=== PATIENT | male | born 1970 ===

== ENCOUNTER 2019-04-13 22:18 | Inpatient (IN) ==
[2019-04-13] MEDS ORDERED: ONDANSETRON 4 MG/2 ML VIAL IV STA (22:37)
[2019-04-13] MEDS ORDERED: NITROGLYCERIN 2% OINT 1 INCH/GM PACK TOP STA (22:37)
[2019-04-13] MEDS ORDERED: PANTOPRAZOLE 40 MG VIAL IV STA (22:37)
[2019-04-13] MEDS ORDERED: ASPIRIN 325 MG TABLET PO STA (22:37)
[2019-04-13 22:46] LABS: Basophils % 0.6 % (0.0-0.8); Eosinophils # 0.2 10*3/uL (0.0-0.87); Eosinophils % 3.1 % (0.00-10.9); Hematocrit 38.4 VOL% (42.0-52.0); Hemoglobin 12.8 GM/DL (14.0-18.0); Immature Granulocytes % 0.4 %; Immature Granulocytes Absolute 0.03 #; Lymphocytes # 1.6 10*3/uL (1.4-4.0); Lymphocytes % 22.8 % (21.2-54.2); Mean Corpuscular HGB Conc 33.3 GM/DL (32-36); Mean Corpuscular Volume 89.9 FL (87-102); Mean Platelet Volume 9.6 FL (9.6-12.0); Monocytes % 9.2 % (1.7-12.7); Neutrophils % 63.9 % (38.7-73.9); Platelet Count 232 T/CUMM (130-400); Red Blood Count 4.27 MC/CUMM (3.8-5.5); Red Cell Distribution Width 13.9 % (9.3-17.3); White Blood Count 6.8 T/CUMM (4-12)
[2019-04-13 22:54] LABS: PT Patient Result 10.4 SECS; Partial Thromboplastin Time 24.5 SECS (0-40)
[2019-04-13 22:58] LABS: Alanine Aminotransferase 34 U/L (16-61); Albumin 3.2 G/DL (3.4-5.0); Alkaline Phosphatase 70 U/L (45-117); Aspartate Amino Transferase 27 U/L (0-37); Blood Urea Nitrogen 12 MG/DL (7-18); Calcium 8.6 MG/DL (8.5-10.1); Glucose 126 MG/DL (74-106); Osmolality,Calculated 280.4 MOS/KG (273-304); Total Protein 7.9 G/DL (6.4-8.3)
[2019-04-13 23:00] LABS: Troponin I 0.135 NG/ML (0.00-0.045)
[2019-04-13] MEDS ORDERED: ENOXAPARIN 120 MG/0.8 ML SYRINGE SUBCUT STA (23:39)
[2019-04-14] MEDS ORDERED: FAMOTIDINE 20 MG/2 ML VIAL IV STA (00:29)
[2019-04-14 01:20] LABS: Apearance,Urine CLEAR (Clear); Bilirubin,Urine Negative (Negative); Blood, Urine Small mg/dL (Negative); Glucose,Urine (UA) Negative (Negative); Ketones,Urine Negative (Negative); Mucus,Urine Occasional /LPF (Occasional); Nitrite,Urine Negative (Negative); Protein,Urine 30 MG/DL; RBC,Urine <1 /HPF (0-4); Squamous Epithelial Cell,Urine Occasional /HPF (0-10); Urine Color Yellow (Yellow); Urine Specific Gravity 1.012 (1.001-1.035); Urine Urobilinogen < 2.0 EU/DL (0.2-1.0); WBC,Urine 2 /HPF (0-6)
[2019-04-14 01:40] LABS: Barbiturates Screen,Urine Negative (Negative); Benzodiazepines Screen,Urine Negative (Negative); Cannabinoid Screen,Urine Negative (Negative); Opiate Screen,Urine Positive (Negative); Phencyclidine Screen,Urine Negative (Negative)
[2019-04-14] MEDS ORDERED: ONDANSETRON 4 MG/2 ML VIAL IV PRN (01:55)
[2019-04-14] MEDS ORDERED: MORPHINE 4 MG/1 ML VIAL IV PRN (01:55)
[2019-04-14] MEDS ORDERED: NITROGLYCERIN SL 0.4 MG TABLET SL PRN (01:55)
[2019-04-14] MEDS ORDERED: ACETAMINOPHEN 325 MG TABLET PO PRN (01:55)
[2019-04-14] MEDS ORDERED: DEXTROSE 50% 25 GM/50 ML VIAL IV PRN (03:42)
[2019-04-14] MEDS ORDERED: GLUCAGON 1 MG VIAL IM PRN (03:42)
[2019-04-14] MEDS: INSULIN LISPRO 100 UNIT/ML SUBCUT SCH ×5 (05:11→21:46)
[2019-04-14] MEDS ORDERED: CLOPIDOGREL 300 MG TABLET PO ONE (06:49)
[2019-04-14 07:45] LABS: Basophils % 0.6 % (0.0-0.8); Eosinophils # 0.2 10*3/uL (0.0-0.87); Eosinophils % 3.2 % (0.00-10.9); Hematocrit 36.9 VOL% (42.0-52.0); Hemoglobin 12.3 GM/DL (14.0-18.0); Immature Granulocytes % 0.2 %; Immature Granulocytes Absolute 0.01 #; Lymphocytes # 2.3 10*3/uL (1.4-4.0); Lymphocytes % 35.1 % (21.2-54.2); Mean Corpuscular HGB Conc 33.3 GM/DL (32-36); Mean Platelet Volume 9.9 FL (9.6-12.0); Monocytes % 9.3 % (1.7-12.7); Neutrophils % 51.6 % (38.7-73.9); Platelet Count 241 T/CUMM (130-400); White Blood Count 6.6 T/CUMM (4-12)
[2019-04-14 08:09] LABS: Calcium 8.2 MG/DL (8.5-10.1); Osmolality,Calculated 281.1 MOS/KG (273-304); Risk Ratio 5.56; Thyroid Stimulating Hormone 2.47 uIU/ml (0.358-3.74); VLDL CHOLESTEROL 36.4 MG/DL
[2019-04-14] MEDS: CLOPIDOGREL 75 MG TABLET PO SCH (08:44)
[2019-04-14] MEDS: DOCUSATE SODIUM 100 MG CAPSULE PO PRN (08:44)
[2019-04-14] MEDS: ASPIRIN 325 MG TABLET PO SCH (08:44)
[2019-04-14] MEDS: PANTOPRAZOLE 40 MG TABLET PO SCH (08:45)
[2019-04-14] MEDS: CARVEDILOL 3.125 MG TABLET PO SCH ×2 (08:45→21:46)
[2019-04-14] MEDS ORDERED: MAGNESIUM SULF RIDER 2 GM in PREMIX 1 EACH IV ONE (09:50)
[2019-04-14] MEDS: ENOXAPARIN 120 MG/0.8 ML SYRINGE SUBCUT SCH ×2 (11:01→22:16)
[2019-04-14] MEDS ORDERED: SERTRALINE 25 MG TABLET PO ONE (14:39)
[2019-04-14] MEDS: SERTRALINE 25 MG TABLET PO SCH (21:46)
[2019-04-14] MEDS: ROSUVASTATIN 10 MG TABLET PO SCH (21:46)
[2019-04-15 08:36] LABS: CKMB % 4.2 %
[2019-04-15 08:40] LABS: Troponin I 2.61 NG/ML (0.00-0.045)
[2019-04-15] MEDS: CLOPIDOGREL 75 MG TABLET PO SCH (09:28)
[2019-04-15] MEDS: INSULIN LISPRO 100 UNIT/ML SUBCUT SCH ×4 (09:28→21:49)
[2019-04-15] MEDS: PANTOPRAZOLE 40 MG TABLET PO SCH (09:28)
[2019-04-15] MEDS: CARVEDILOL 3.125 MG TABLET PO SCH ×2 (09:29→21:49)
[2019-04-15] MEDS: ASPIRIN 325 MG TABLET PO SCH (09:29)
[2019-04-15] MEDS: ENOXAPARIN 120 MG/0.8 ML SYRINGE SUBCUT SCH ×2 (12:58→23:51)
[2019-04-15] MEDS ORDERED: MAGNESIUM SULF RIDER 2 GM in PREMIX 1 EACH IV ONE (15:48)
[2019-04-15] MEDS ORDERED: DIAZEPAM 5 MG TABLET PO ONE (15:49)
[2019-04-15] MEDS ORDERED: diphenhydrAMINE CAP 25 MG CAPSULE PO ONE (15:49)
[2019-04-15] MEDS ORDERED: POTASSIUM CHLORIDE RIDER 10 MEQ in PREMIX 1 EACH IV PRN (15:49)
[2019-04-15] MEDS ORDERED: MAGNESIUM SULF RIDER 2 GM in PREMIX 1 EACH IV PRN (15:49)
[2019-04-15] MEDS: ROSUVASTATIN 10 MG TABLET PO SCH (21:48)
[2019-04-15] MEDS: SERTRALINE 25 MG TABLET PO SCH (21:49)
[2019-04-15] MEDS: MAGNESIUM CHLORIDE 64 MG TABLET PO SCH (21:49)
[2019-04-16 04:43] LABS: Calcium 8.4 MG/DL (8.5-10.1); Osmolality,Calculated 281.4 MOS/KG (273-304); Total Protein 7.9 G/DL (6.4-8.3)
[2019-04-16] MEDS ORDERED: DIAZEPAM 5 MG TABLET PO ONE (06:30)
[2019-04-16] MEDS ORDERED: diphenhydrAMINE CAP 25 MG CAPSULE PO ONE (06:30)
[2019-04-16] MEDS: CLOPIDOGREL 75 MG TABLET PO SCH (09:57)
[2019-04-16] MEDS: MAGNESIUM CHLORIDE 64 MG TABLET PO SCH ×2 (09:57→21:48)
[2019-04-16] MEDS: PANTOPRAZOLE 40 MG TABLET PO SCH (09:58)
[2019-04-16] MEDS: CARVEDILOL 3.125 MG TABLET PO SCH ×2 (09:58→21:48)
[2019-04-16] MEDS: ASPIRIN 325 MG TABLET PO SCH (09:58)
[2019-04-16] MEDS: INSULIN LISPRO 100 UNIT/ML SUBCUT SCH ×4 (10:00→21:49)
[2019-04-16] MEDS ORDERED: LIDOCAINE 1% 20 ML VIAL ONE (10:03)
[2019-04-16] MEDS ORDERED: MIDAZOLAM 2 MG/2 ML VIAL ONE (10:34)
[2019-04-16] MEDS ORDERED: fentaNYL 100 MCG/2 ML VIAL ONE ×2 (10:34→12:30)
[2019-04-16] MEDS ORDERED: HEPARIN 5,000 UNIT/1 ML VIAL ONE (10:56)
[2019-04-16] MEDS ORDERED: TIROFIBAN 5,000 MCG/100 ML PREMIX IV ONE (11:08)
[2019-04-16] MEDS ORDERED: TIROFIBAN IV ONE (11:11)
[2019-04-16] MEDS ORDERED: TICAGRELOR 90 MG TABLET ONE (12:29)
[2019-04-16] MEDS: ENOXAPARIN 120 MG/0.8 ML SYRINGE SUBCUT SCH (14:28)
[2019-04-16] MEDS: SODIUM CHLORIDE 0.9% 1,000 ML IV SCH ×4 (14:34→22:05)
[2019-04-16] MEDS: CILOSTAZOL 50 MG TABLET PO SCH ×2 (15:24→21:48)
[2019-04-16] MEDS: SERTRALINE 25 MG TABLET PO SCH (21:48)
[2019-04-16] MEDS: ROSUVASTATIN 10 MG TABLET PO SCH (21:48)
[2019-04-16] MEDS: TICAGRELOR 90 MG TABLET PO SCH (21:48)
[2019-04-17] MEDS: SODIUM CHLORIDE 0.9% 1,000 ML IV SCH (00:17)
[2019-04-17 04:24] LABS: Basophils % 0.4 % (0.0-0.8); Eosinophils % 0.3 % (0.00-10.9); Hematocrit 38.1 VOL% (42.0-52.0); Hemoglobin 12.8 GM/DL (14.0-18.0); Immature Granulocytes % 0.3 %; Immature Granulocytes Absolute 0.03 #; Lymphocytes # 1.1 10*3/uL (1.4-4.0); Mean Corpuscular HGB Conc 33.6 GM/DL (32-36); Mean Corpuscular Volume 89.9 FL (87-102); Mean Platelet Volume 9.6 FL (9.6-12.0); Monocytes % 8.3 % (1.7-12.7); Neutrophils % 78.7 % (38.7-73.9); Platelet Count 228 T/CUMM (130-400); Red Blood Count 4.24 MC/CUMM (3.8-5.5); Red Cell Distribution Width 13.9 % (9.3-17.3); White Blood Count 9.4 T/CUMM (4-12)
[2019-04-17 04:47] LABS: Albumin 3.1 G/DL (3.4-5.0); Bilirubin,Total 1.5 MG/DL (0.2-1.0); Calcium 8.2 MG/DL (8.5-10.1); Osmolality,Calculated 285.3 MOS/KG (273-304); Total Protein 7.9 G/DL (6.4-8.3)
[2019-04-17 09:12] LABS: Albumin 3.1 G/DL (3.4-5.0); Bilirubin,Direct 0.13 MG/DL (0.0-0.20); Bilirubin,Indirect 0.4 MG/DL (0.0-1.0); Bilirubin,Total 0.5 MG/DL (0.2-1.0); Total Protein 7.7 G/DL (6.4-8.3)
[2019-04-17] MEDS: INSULIN LISPRO 100 UNIT/ML SUBCUT SCH ×4 (09:45→21:11)
[2019-04-17] MEDS: PANTOPRAZOLE 40 MG TABLET PO SCH (09:49)
[2019-04-17] MEDS: TICAGRELOR 90 MG TABLET PO SCH ×2 (09:49→21:11)
[2019-04-17] MEDS: CILOSTAZOL 50 MG TABLET PO SCH ×2 (09:49→21:09)
[2019-04-17] MEDS: ASPIRIN CHEW 81 MG TABLET PO SCH (09:49)
[2019-04-17] MEDS: CARVEDILOL 3.125 MG TABLET PO SCH ×2 (09:49→21:11)
[2019-04-17] MEDS: MAGNESIUM CHLORIDE 64 MG TABLET PO SCH ×2 (09:50→21:10)
[2019-04-17] MEDS: ROSUVASTATIN 10 MG TABLET PO SCH (21:09)
[2019-04-17] MEDS: SERTRALINE 25 MG TABLET PO SCH (21:11)
[2019-04-18 05:46] LABS: Albumin 2.8 G/DL (3.4-5.0); Bilirubin,Total 1.2 MG/DL (0.2-1.0); Osmolality,Calculated 279.8 MOS/KG (273-304); Total Protein 7.6 G/DL (6.4-8.3)
[2019-04-18 08:42] LABS: Basophils % 0.3 % (0.0-0.8); Eosinophils % 0.2 % (0.00-10.9); Hematocrit 37.3 VOL% (42.0-52.0); Hemoglobin 12.4 GM/DL (14.0-18.0); Immature Granulocytes % 0.5 %; Immature Granulocytes Absolute 0.06 #; Lymphocytes # 1.5 10*3/uL (1.4-4.0); Lymphocytes % 13.4 % (21.2-54.2); Mean Corpuscular HGB Conc 33.2 GM/DL (32-36); Mean Corpuscular Volume 90.5 FL (87-102); Mean Platelet Volume 9.6 FL (9.6-12.0); Monocytes % 14.2 % (1.7-12.7); Neutrophils % 71.4 % (38.7-73.9); Platelet Count 231 T/CUMM (130-400); Red Blood Count 4.12 MC/CUMM (3.8-5.5); Red Cell Distribution Width 13.8 % (9.3-17.3)
[2019-04-18] MEDS: CILOSTAZOL 50 MG TABLET PO SCH ×2 (09:06→20:41)
[2019-04-18] MEDS: TICAGRELOR 90 MG TABLET PO SCH ×2 (09:06→20:42)
[2019-04-18] MEDS: CARVEDILOL 3.125 MG TABLET PO SCH ×2 (09:07→20:41)
[2019-04-18] MEDS: PANTOPRAZOLE 40 MG TABLET PO SCH (09:07)
[2019-04-18] MEDS: INSULIN LISPRO 100 UNIT/ML SUBCUT SCH ×4 (09:07→20:41)
[2019-04-18] MEDS: MAGNESIUM CHLORIDE 64 MG TABLET PO SCH ×2 (09:07→20:42)
[2019-04-18] MEDS: ASPIRIN CHEW 81 MG TABLET PO SCH (09:07)
[2019-04-18 09:44] LABS: Apearance,Urine Slightly Hazy (Clear); Bilirubin,Urine Negative (Negative); Blood, Urine Negative (Negative); Glucose,Urine (UA) Negative (Negative); Hyaline Casts,Urine 1 /LPF (0-3); Ketones,Urine Negative (Negative); Mucus,Urine Occasional /LPF (Occasional); Nitrite,Urine Negative (Negative); Protein,Urine 30 MG/DL; RBC,Urine 2 /HPF (0-4); Squamous Epithelial Cell,Urine Occasional /HPF (0-10); Urine Color Yellow (Yellow); Urine Specific Gravity 1.024 (1.001-1.035); WBC,Urine 7 /HPF (0-6)
[2019-04-18] MEDS: ALLOPURINOL 100 MG TABLET PO SCH (11:20)
[2019-04-18] MEDS: methylPREDNISolone SOD SUC 40 MG/1 ML VIAL IV SCH ×2 (11:22→18:27)
[2019-04-18] MEDS: ROSUVASTATIN 10 MG TABLET PO SCH (20:41)
[2019-04-18] MEDS: SERTRALINE 50 MG TABLET PO SCH (20:42)
[2019-04-19] MEDS: methylPREDNISolone SOD SUC 40 MG/1 ML VIAL IV SCH ×3 (02:45→18:07)
[2019-04-19 04:03] LABS: Basophils % 0.1 % (0.0-0.8); Hematocrit 36.2 VOL% (42.0-52.0); Hemoglobin 12.3 GM/DL (14.0-18.0); Immature Granulocytes % 0.9 %; Immature Granulocytes Absolute 0.11 #; Lymphocytes # 0.7 10*3/uL (1.4-4.0); Lymphocytes % 6.2 % (21.2-54.2); Mean Corpuscular Volume 87.9 FL (87-102); Monocytes % 4.9 % (1.7-12.7); Neutrophils % 87.9 % (38.7-73.9); Platelet Count 239 T/CUMM (130-400); Red Blood Count 4.12 MC/CUMM (3.8-5.5); Red Cell Distribution Width 13.5 % (9.3-17.3); White Blood Count 11.9 T/CUMM (4-12)
[2019-04-19 04:35] LABS: Albumin 2.8 G/DL (3.4-5.0); Bilirubin,Total 0.7 MG/DL (0.2-1.0); Calcium 8.4 MG/DL (8.5-10.1); Total Protein 8.2 G/DL (6.4-8.3)
[2019-04-19] MEDS ORDERED: COLCHICINE 0.6 MG CAPSULE PO ONE ×3 (08:52→09:31)
[2019-04-19] MEDS: PANTOPRAZOLE 40 MG TABLET PO SCH (09:20)
[2019-04-19] MEDS: CARVEDILOL 3.125 MG TABLET PO SCH ×2 (09:20→21:43)
[2019-04-19] MEDS: ASPIRIN CHEW 81 MG TABLET PO SCH (09:21)
[2019-04-19] MEDS: ALLOPURINOL 100 MG TABLET PO SCH (09:21)
[2019-04-19] MEDS: TICAGRELOR 90 MG TABLET PO SCH ×2 (09:21→21:43)
[2019-04-19] MEDS: MAGNESIUM CHLORIDE 64 MG TABLET PO SCH ×2 (09:21→21:43)
[2019-04-19] MEDS: INSULIN LISPRO 100 UNIT/ML SUBCUT SCH ×4 (09:21→21:40)
[2019-04-19] MEDS: CILOSTAZOL 50 MG TABLET PO SCH ×2 (09:21→21:43)
[2019-04-19] MEDS: cefTRIAXone 1,000 MG in SYRINGE 1 EACH IV SCH (10:25)
[2019-04-19] MEDS: ROSUVASTATIN 10 MG TABLET PO SCH (21:43)
[2019-04-19] MEDS: SERTRALINE 50 MG TABLET PO SCH (21:47)
[2019-04-20] MEDS: methylPREDNISolone SOD SUC 40 MG/1 ML VIAL IV SCH ×3 (03:52→16:27)
[2019-04-20 06:24] LABS: Basophils % 0.1 % (0.0-0.8); Hematocrit 35.1 VOL% (42.0-52.0); Hemoglobin 12.2 GM/DL (14.0-18.0); Immature Granulocytes % 0.9 %; Immature Granulocytes Absolute 0.13 #; Lymphocytes # 0.7 10*3/uL (1.4-4.0); Lymphocytes % 5.1 % (21.2-54.2); Mean Corpuscular HGB Conc 34.8 GM/DL (32-36); Mean Corpuscular Volume 87.1 FL (87-102); Mean Platelet Volume 10.3 FL (9.6-12.0); Monocytes % 6.7 % (1.7-12.7); Neutrophils % 87.2 % (38.7-73.9); Platelet Count 307 T/CUMM (130-400); Red Blood Count 4.03 MC/CUMM (3.8-5.5); Red Cell Distribution Width 13.6 % (9.3-17.3); White Blood Count 13.8 T/CUMM (4-12)
[2019-04-20 06:44] LABS: Calcium 7.7 MG/DL (8.5-10.1); Osmolality,Calculated 288.1 MOS/KG (273-304)
[2019-04-20] MEDS: INSULIN LISPRO 100 UNIT/ML SUBCUT SCH ×4 (08:29→21:07)
[2019-04-20] MEDS: MAGNESIUM CHLORIDE 64 MG TABLET PO SCH ×2 (08:34→21:08)
[2019-04-20] MEDS: DOCUSATE SODIUM 100 MG CAPSULE PO PRN (08:35)
[2019-04-20] MEDS: PANTOPRAZOLE 40 MG TABLET PO SCH (08:35)
[2019-04-20] MEDS: TICAGRELOR 90 MG TABLET PO SCH ×2 (08:35→21:08)
[2019-04-20] MEDS: ALLOPURINOL 100 MG TABLET PO SCH (08:35)
[2019-04-20] MEDS: ASPIRIN CHEW 81 MG TABLET PO SCH (08:35)
[2019-04-20] MEDS: CILOSTAZOL 50 MG TABLET PO SCH ×2 (08:35→21:08)
[2019-04-20] MEDS: CARVEDILOL 3.125 MG TABLET PO SCH ×2 (08:35→21:08)
[2019-04-20] MEDS: cefTRIAXone 1,000 MG in SYRINGE 1 EACH IV SCH (11:08)
[2019-04-20] MEDS: ROSUVASTATIN 10 MG TABLET PO SCH (21:08)
[2019-04-20] MEDS: SERTRALINE 50 MG TABLET PO SCH (21:08)
[2019-04-21] MEDS: methylPREDNISolone SOD SUC 40 MG/1 ML VIAL IV SCH ×2 (04:17→14:33)
[2019-04-21] MEDS: DOCUSATE SODIUM 100 MG CAPSULE PO PRN (08:37)
[2019-04-21] MEDS: MAGNESIUM CHLORIDE 64 MG TABLET PO SCH ×2 (08:37→22:10)
[2019-04-21] MEDS: TICAGRELOR 90 MG TABLET PO SCH ×2 (08:37→22:05)
[2019-04-21] MEDS: CARVEDILOL 3.125 MG TABLET PO SCH ×2 (08:37→22:10)
[2019-04-21] MEDS: ALLOPURINOL 100 MG TABLET PO SCH (08:37)
[2019-04-21] MEDS: ASPIRIN CHEW 81 MG TABLET PO SCH (08:37)
[2019-04-21] MEDS: INSULIN LISPRO 100 UNIT/ML SUBCUT SCH ×4 (08:38→22:11)
[2019-04-21] MEDS: CILOSTAZOL 50 MG TABLET PO SCH ×2 (08:41→22:03)
[2019-04-21] MEDS: PANTOPRAZOLE 40 MG TABLET PO SCH (08:44)
[2019-04-21] MEDS: cefTRIAXone 1,000 MG in SYRINGE 1 EACH IV SCH (11:38)
[2019-04-21] MEDS: SERTRALINE 50 MG TABLET PO SCH (22:00)
[2019-04-21] MEDS: ROSUVASTATIN 10 MG TABLET PO SCH (22:02)
[2019-04-22] MEDS: INSULIN LISPRO 100 UNIT/ML SUBCUT SCH ×3 (00:46→08:02)
[2019-04-22] MEDS: methylPREDNISolone SOD SUC 40 MG/1 ML VIAL IV SCH (03:06)
[2019-04-22 08:13] VITALS: BP 136/65
[2019-04-22] MEDS: ASPIRIN CHEW 81 MG TABLET PO SCH (09:48)
[2019-04-22] MEDS: ALLOPURINOL 100 MG TABLET PO SCH (09:48)
[2019-04-22] MEDS: DOCUSATE SODIUM 100 MG CAPSULE PO PRN (09:48)
[2019-04-22] MEDS: PANTOPRAZOLE 40 MG TABLET PO SCH (09:49)
[2019-04-22] MEDS: CARVEDILOL 3.125 MG TABLET PO SCH (09:49)
[2019-04-22] MEDS: MAGNESIUM CHLORIDE 64 MG TABLET PO SCH (09:49)
[2019-04-22] MEDS: TICAGRELOR 90 MG TABLET PO SCH (09:49)
[2019-04-22] MEDS: CILOSTAZOL 50 MG TABLET PO SCH (09:49)
[2019-04-22] MEDS ORDERED: predniSONE 20 MG TABLET PO ONE (10:15)
[2019-04-22] MEDS: cefTRIAXone 1,000 MG in SYRINGE 1 EACH IV SCH (10:33)
== END 2019-04-22 11:10 | disposition home or self-care (01) | DRG 247 ==
LOC: EDUNIT# → EDBD → N.ED 22:18 → N.EDINP 22:18 → N.TELES 04-14 01:19
PROVIDERS: ADMIT Internal Medicine; ATTEND Internal Medicine
PROC: CLCCHCL (ICD-10-PCS; 2019-04-16 09:15)

== ENCOUNTER 2021-01-22 17:11 | Observation (INO) ==
[2021-01-22] MEDS ORDERED: DEXTROSE 50% 25 GM/50 ML VIAL IV PRN (21:09)
[2021-01-22] MEDS ORDERED: GLUCAGON 1 MG VIAL IM PRN (21:09)
[2021-01-22] MEDS ORDERED: ALUMINUM/MAGNES/SIMETH MAX STR 30 ML UDCUP PO PRN (21:09)
[2021-01-22] MEDS ORDERED: NICOTINE 21 MG/24 HR PATCH TRANSDERM PRN (21:09)
[2021-01-22] MEDS ORDERED: diphenhydrAMINE CAP 25 MG CAPSULE PO PRN (21:09)
[2021-01-22] MEDS ORDERED: guaiFENesin/DM ER 600-30 MG TABLET PO PRN (21:09)
[2021-01-22] MEDS ORDERED: ALBUTEROL/IPRATROPIUM 3 ML NEB RESP TX PRN (21:09)
[2021-01-22] MEDS ORDERED: hydrALAZINE 20 MG/1 ML VIAL IV PRN (21:09)
[2021-01-22] MEDS ORDERED: ACETAMINOPHEN 325 MG TABLET PO PRN (21:09)
[2021-01-22] MEDS ORDERED: MORPHINE 4 MG/1 ML VIAL IV PRN (21:09)
[2021-01-22] MEDS ORDERED: ONDANSETRON 4 MG/2 ML VIAL IV PRN (21:09)
[2021-01-22 21:30] LABS: Basophils % 0.5 % (0.0-0.8); Eosinophils # 0.3 10*3/uL (0.0-0.87); Eosinophils % 2.9 % (0.00-10.9); Hematocrit 41.1 VOL% (42.0-52.0); Hemoglobin 13.5 GM/DL (14.0-18.0); Immature Granulocytes % 0.4 %; Immature Granulocytes Absolute 0.03 #; Lymphocytes # 2.6 10*3/uL (1.4-4.0); Lymphocytes % 30.1 % (21.2-54.2); Mean Corpuscular HGB Conc 32.8 GM/DL (32-36); Mean Corpuscular Volume 92.2 FL (87-102); Mean Platelet Volume 9.2 FL (9.6-12.0); Monocytes % 8.4 % (1.7-12.7); Neutrophils % 57.7 % (38.7-73.9); Platelet Count 256 T/CUMM (130-400); Red Blood Count 4.46 MC/CUMM (3.8-5.5); Red Cell Distribution Width 14.5 % (9.3-17.3); White Blood Count 8.5 T/CUMM (4-12)
[2021-01-22 21:50] LABS: Albumin 3.5 G/DL (3.4-5.0); Bilirubin,Total 0.5 MG/DL (0.2-1.0); Calcium 8.7 MG/DL (8.5-10.1); Osmolality,Calculated 283.3 MOS/KG (273-304); Potassium 4.1 MMOL/L (3.5-5.1); Risk Ratio 3.43; Total Protein 8.4 G/DL (5.0-7.5); VLDL CHOLESTEROL 31.4 MG/DL
[2021-01-23] MEDS ORDERED: NITROGLYCERIN SL 0.4 MG TABLET SL PRN (06:31)
[2021-01-23] MEDS ORDERED: carvediloL 6.25 MG TABLET PO SCH (09:00)
[2021-01-23] MEDS ORDERED: ASPIRIN CHEW 81 MG TABLET PO SCH (09:00)
[2021-01-23] MEDS ORDERED: LOSARTAN 50 MG TABLET PO SCH (09:00)
[2021-01-23] MEDS ORDERED: cilostazoL 50 MG TABLET PO SCH (09:00)
[2021-01-23] MEDS ORDERED: MAGNESIUM SULF RIDER 2 GM in PREMIX 1 EACH IV ONE (10:06)
[2021-01-23 10:52] LABS: Calcium 8.3 MG/DL (8.5-10.1); Osmolality,Calculated 285.3 MOS/KG (273-304); Potassium 4.2 MMOL/L (3.5-5.1)
[2021-01-23 10:57] LABS: Troponin I < 0.015 NG/ML (0.00-0.045)
[2021-01-23] MEDS: INSULIN REGULAR 100 UNIT/ML SUBCUT SCH (12:29)
[2021-01-23] MEDS ORDERED: IMIPRAMINE 25 MG TABLET PO ONE (12:51)
[2021-01-23] MEDS ORDERED: ACETAMINOPHEN 325 MG TABLET PO SCH (13:00)
[2021-01-23 13:02] VITALS: BP 115/81
[2021-01-23 13:35] LABS: Troponin I < 0.015 NG/ML (0.00-0.045)
[2021-01-23] MEDS ORDERED: GABAPENTIN 100 MG CAPSULE PO SCH ×2 (14:04→15:00)
[2021-01-23] MEDS ORDERED: MAGNESIUM CHLORIDE 64 MG TABLET PO SCH (14:30)
[2021-01-23] MEDS ORDERED: IMIPRAMINE 25 MG TABLET PO SCH (21:00)
[2021-01-23] MEDS ORDERED: ROSUVASTATIN 10 MG TABLET PO SCH (21:00)
[2021-01-23] MEDS ORDERED: carvediloL 12.5 MG TABLET PO SCH (21:00)
[2021-01-24] MEDS ORDERED: LOSARTAN 25 MG TABLET PO SCH (09:00)
== END 2021-01-23 16:00 | disposition home or self-care (01) ==
LOC: N.TELES
PROVIDERS: ADMIT Internal Medicine; ATTEND Hospitalist

== ENCOUNTER 2021-09-23 21:10 | Inpatient (IN) ==
[2021-09-23] MEDS ORDERED: GLUCAGON 1 MG VIAL IM PRN (23:02)
[2021-09-23] MEDS ORDERED: DEXTROSE 50% 25 GM/50 ML VIAL IV PRN ×2 (23:02)
[2021-09-23] MEDS ORDERED: VANCOMYCIN INJ 1,500 MG in SODIUM CHLORIDE 0.9% 250 ML IV SCH (23:30)
[2021-09-23] MEDS: SODIUM CHLORIDE 0.9% 1,000 ML IV SCH (23:45)
[2021-09-24 00:17] LABS: Albumin 2.7 G/DL (3.4-5.0); Bilirubin,Total 0.8 MG/DL (0.20-1.00); Calcium 8.1 MG/DL (8.5-10.1); Osmolality,Calculated 277.1 MOS/KG (273-304); Potassium 3.7 MMOL/L (3.5-5.1); Total Protein 7.7 G/DL (6.4-8.2)
[2021-09-24] MEDS ORDERED: PIPERACILLIN/TAZOBACTAM 3,375 MG in SODIUM CHLORIDE 0.9% 100 ML IV SCH (01:00)
[2021-09-24] MEDS: SODIUM CHLORIDE 0.9% 1,000 ML IV SCH ×6 (01:03→23:45)
[2021-09-24] MEDS: ACETAMINOPHEN 325 MG TABLET PO PRN ×3 (01:37→17:20)
[2021-09-24] MEDS ORDERED: VANCOMYCIN INJ 1,500 MG in SODIUM CHLORIDE 0.9% 500 ML IV SCH (05:00)
[2021-09-24 07:45] LABS: Basophils % 0.4 % (0.0-0.8); Hematocrit 32.4 VOL% (42.0-52.0); Hemoglobin 10.3 GM/DL (14.0-18.0); Immature Granulocytes % 0.6 %; Immature Granulocytes Absolute 0.04 #; Lymphocytes # 0.5 10*3/uL (1.4-4.0); Lymphocytes % 7.2 % (21.2-54.2); Mean Corpuscular HGB Conc 31.8 GM/DL (32-36); Mean Corpuscular Volume 91.5 FL (87-102); Mean Platelet Volume 9.7 FL (9.6-12.0); Monocytes % 7.2 % (1.7-12.7); Neutrophils % 84.6 % (38.7-73.9); Platelet Count 184 T/CUMM (130-400); Red Blood Count 3.54 MC/CUMM (3.8-5.5); Red Cell Distribution Width 15.2 % (9.3-17.3)
[2021-09-24 08:16] LABS: Albumin 2.4 G/DL (3.4-5.0); Bilirubin,Total 1.3 MG/DL (0.20-1.00); Calcium 7.7 MG/DL (8.5-10.1); Osmolality,Calculated 278.1 MOS/KG (273-304); Potassium 3.8 MMOL/L (3.5-5.1)
[2021-09-24] MEDS: INSULIN REGULAR 100 UNIT/ML SUBCUT SCH ×4 (09:03→22:31)
[2021-09-24] MEDS: ENOXAPARIN 40 MG/0.4 ML SYRINGE SUBCUT SCH (09:30)
[2021-09-24] MEDS: VANCOMYCIN 50 MG/ML 60 ML/BOTTLE PO SCH ×3 (09:30→22:31)
[2021-09-24] MEDS ORDERED: VANCOMYCIN 50 MG/ML 60 ML/BOTTLE PO SCH (12:00)
[2021-09-24 15:04] LABS: Bacteria,Urine Occasional /HPF (Few); Bilirubin,Urine Negative (Negative); Blood, Urine Small mg/dL (Negative); Glucose,Urine (UA) Negative (Negative); Ketones,Urine Negative (Negative); Mucus,Urine Occasional /LPF (Occasional); Nitrite,Urine Negative (Negative); Protein,Urine Negative; RBC,Urine 1 /HPF (0-4); Squamous Epithelial Cell,Urine Occasional /HPF (0-10); Urine Appearance CLEAR (Clear); Urine Color Yellow (Yellow); Urine Specific Gravity 1.013 (1.001-1.035); Urine Urobilinogen < 2.0 EU/DL (0.2-1.0)
[2021-09-24] MEDS ORDERED: NITROGLYCERIN SL 0.4 MG TABLET SL PRN (16:30)
[2021-09-24] MEDS ORDERED: LORATADINE 10 MG TABLET PO PRN (16:36)
[2021-09-24] MEDS ORDERED: hydrALAZINE 20 MG/1 ML VIAL IV ONE (16:54)
[2021-09-24] MEDS: DOCUSATE SODIUM 100 MG CAPSULE PO SCH (22:09)
[2021-09-24] MEDS: cilostazoL 50 MG TABLET PO SCH (22:32)
[2021-09-24] MEDS: GABAPENTIN 100 MG CAPSULE PO SCH (22:32)
[2021-09-24] MEDS: TICAGRELOR 90 MG TABLET PO SCH (22:32)
[2021-09-25] MEDS: ACETAMINOPHEN 325 MG TABLET PO PRN ×3 (00:05→18:21)
[2021-09-25] MEDS: VANCOMYCIN 50 MG/ML 60 ML/BOTTLE PO SCH ×4 (03:21→21:59)
[2021-09-25] MEDS: PANTOPRAZOLE 40 MG TABLET PO SCH (06:19)
[2021-09-25 07:08] LABS: Basophils % 0.5 % (0.0-0.8); Eosinophils # 0.2 10*3/uL (0.0-0.87); Eosinophils % 3.2 % (0.00-10.9); Hematocrit 35.3 VOL% (42.0-52.0); Hemoglobin 11.1 GM/DL (14.0-18.0); Immature Granulocytes % 0.5 %; Immature Granulocytes Absolute 0.03 #; Lymphocytes % 17.3 % (21.2-54.2); Mean Corpuscular HGB Conc 31.4 GM/DL (32-36); Mean Corpuscular Volume 92.9 FL (87-102); Mean Platelet Volume 9.5 FL (9.6-12.0); Monocytes % 11.1 % (1.7-12.7); Neutrophils % 67.4 % (38.7-73.9); Platelet Count 198 T/CUMM (130-400); Red Cell Distribution Width 15.1 % (9.3-17.3)
[2021-09-25 07:22] LABS: Alanine Aminotransferase 42 U/L (16-61); Albumin 2.5 G/DL (3.4-5.0); Alkaline Phosphatase 85 U/L (45-117); Aspartate Amino Transferase 45 U/L (0-37); Blood Urea Nitrogen 14 MG/DL (7-18); Calcium 8.1 MG/DL (8.5-10.1); Carbon Dioxide 21 MMOL/L (21-32); Estimated Glom Filtration Rate 73 ML/MIN; Glucose 111 MG/DL (74-106); Osmolality,Calculated 271.1 MOS/KG (273-304); Potassium 3.8 MMOL/L (3.5-5.1); Sodium 135 MMOL/L (136-145); Total Protein 7.8 G/DL (6.4-8.2)
[2021-09-25] MEDS: cilostazoL 50 MG TABLET PO SCH ×2 (09:25→21:59)
[2021-09-25] MEDS: MAGNESIUM CHLORIDE 64 MG TABLET PO SCH (09:25)
[2021-09-25] MEDS: ASPIRIN CHEW 81 MG TABLET PO SCH (09:25)
[2021-09-25] MEDS: GABAPENTIN 100 MG CAPSULE PO SCH ×3 (09:26→21:59)
[2021-09-25] MEDS: MULTIVITAMIN (CENTRUM) TABLET PO SCH (09:26)
[2021-09-25] MEDS: allopurinoL 100 MG TABLET PO SCH (09:26)
[2021-09-25] MEDS: DOCUSATE SODIUM 100 MG CAPSULE PO SCH ×2 (09:26→21:59)
[2021-09-25] MEDS: TICAGRELOR 90 MG TABLET PO SCH ×2 (09:27→21:59)
[2021-09-25] MEDS: ENOXAPARIN 40 MG/0.4 ML SYRINGE SUBCUT SCH (09:27)
[2021-09-25] MEDS: SODIUM CHLORIDE 0.9% 1,000 ML IV SCH ×2 (10:46→18:43)
[2021-09-25] MEDS: INSULIN REGULAR 100 UNIT/ML SUBCUT SCH ×4 (12:00→21:59)
[2021-09-25] MEDS: MOMETASONE 50 MCG NASAL SPRAY 17 GM BOTTLE BOTH NARES SCH ×2 (15:50→22:00)
[2021-09-26] MEDS: SODIUM CHLORIDE 0.9% 1,000 ML IV SCH ×3 (02:47→23:51)
[2021-09-26] MEDS: ACETAMINOPHEN 325 MG TABLET PO PRN ×2 (04:24→15:51)
[2021-09-26] MEDS: VANCOMYCIN 50 MG/ML 60 ML/BOTTLE PO SCH ×4 (04:25→20:20)
[2021-09-26 05:50] LABS: Basophils % 0.4 % (0.0-0.8); Eosinophils # 0.1 10*3/uL (0.0-0.87); Eosinophils % 2.3 % (0.00-10.9); Hematocrit 29.6 VOL% (42.0-52.0); Hemoglobin 9.4 GM/DL (14.0-18.0); Immature Granulocytes % 0.6 %; Immature Granulocytes Absolute 0.03 #; Lymphocytes # 0.8 10*3/uL (1.4-4.0); Lymphocytes % 16.6 % (21.2-54.2); Mean Corpuscular HGB Conc 31.8 GM/DL (32-36); Mean Corpuscular Volume 90.2 FL (87-102); Mean Platelet Volume 9.7 FL (9.6-12.0); Monocytes % 14.7 % (1.7-12.7); Neutrophils % 65.4 % (38.7-73.9); Platelet Count 180 T/CUMM (130-400); Red Blood Count 3.28 MC/CUMM (3.8-5.5); Red Cell Distribution Width 15.1 % (9.3-17.3); White Blood Count 4.8 T/CUMM (4-12)
[2021-09-26 06:14] LABS: Anisocytosis 1+; Band Neutrophils 9 % (0-10); Eosinophils 2 % (0-10); Lymphocytes 17 % (20-55); Platelet Estimate Normal; Segmented Neutrophils 58 % (50-85); Total Cells Counted 100
[2021-09-26 06:15] LABS: Macrocytosis Slight; Ovalocytes Few
[2021-09-26 06:17] LABS: Albumin 2.3 G/DL (3.4-5.0); Bilirubin,Total 0.6 MG/DL (0.20-1.00); Calcium 7.7 MG/DL (8.5-10.1); Osmolality,Calculated 272.8 MOS/KG (273-304); Potassium 3.2 MMOL/L (3.5-5.1); Total Protein 6.9 G/DL (6.4-8.2)
[2021-09-26] MEDS: PANTOPRAZOLE 40 MG TABLET PO SCH (06:35)
[2021-09-26] MEDS: INSULIN REGULAR 100 UNIT/ML SUBCUT SCH ×4 (07:42→20:21)
[2021-09-26] MEDS: ASPIRIN CHEW 81 MG TABLET PO SCH (09:22)
[2021-09-26] MEDS: DOCUSATE SODIUM 100 MG CAPSULE PO SCH ×2 (09:22→20:19)
[2021-09-26] MEDS: MULTIVITAMIN (CENTRUM) TABLET PO SCH (09:22)
[2021-09-26] MEDS: allopurinoL 100 MG TABLET PO SCH (09:22)
[2021-09-26] MEDS: cilostazoL 50 MG TABLET PO SCH ×2 (09:22→20:19)
[2021-09-26] MEDS: MAGNESIUM CHLORIDE 64 MG TABLET PO SCH (09:22)
[2021-09-26] MEDS: GABAPENTIN 100 MG CAPSULE PO SCH ×3 (09:22→20:19)
[2021-09-26] MEDS: MOMETASONE 50 MCG NASAL SPRAY 17 GM BOTTLE BOTH NARES SCH (09:22)
[2021-09-26] MEDS: TICAGRELOR 90 MG TABLET PO SCH ×2 (09:22→20:19)
[2021-09-26] MEDS: LORATADINE 10 MG TABLET PO SCH (09:22)
[2021-09-26] MEDS: ENOXAPARIN 40 MG/0.4 ML SYRINGE SUBCUT SCH (09:23)
[2021-09-26] MEDS: POTASSIUM CHLORIDE RIDER 10 MEQ/100 ML PREMIX IV PRN ×4 (10:34→13:50)
[2021-09-27] MEDS: VANCOMYCIN 50 MG/ML 60 ML/BOTTLE PO SCH ×4 (02:49→20:22)
[2021-09-27 05:06] LABS: Basophils % 0.4 % (0.0-0.8); Eosinophils # 0.2 10*3/uL (0.0-0.87); Eosinophils % 4.3 % (0.00-10.9); Hematocrit 28.8 VOL% (42.0-52.0); Hemoglobin 9.3 GM/DL (14.0-18.0); Immature Granulocytes % 0.8 %; Immature Granulocytes Absolute 0.04 #; Lymphocytes # 1.3 10*3/uL (1.4-4.0); Lymphocytes % 25.1 % (21.2-54.2); Mean Corpuscular HGB Conc 32.3 GM/DL (32-36); Mean Platelet Volume 9.7 FL (9.6-12.0); Neutrophils % 52.4 % (38.7-73.9); Platelet Count 214 T/CUMM (130-400); Red Cell Distribution Width 15.2 % (9.3-17.3); White Blood Count 5.3 T/CUMM (4-12)
[2021-09-27 05:36] LABS: Albumin 2.2 G/DL (3.4-5.0); Bilirubin,Total 0.7 MG/DL (0.20-1.00); Calcium 7.5 MG/DL (8.5-10.1); Osmolality,Calculated 279.4 MOS/KG (273-304); Potassium 3.3 MMOL/L (3.5-5.1); Total Protein 6.7 G/DL (6.4-8.2)
[2021-09-27 05:40] LABS: Anisocytosis 1+; Band Neutrophils 7 % (0-10); Eosinophils 3 % (0-10); Lymphocytes 27 % (20-55); Nucleated Red Blood Cells 1 (0-5); Platelet Estimate Normal; Segmented Neutrophils 42 % (50-85); Smudge Cells Few; Total Cells Counted 100
[2021-09-27 05:41] LABS: Macrocytosis Slight
[2021-09-27] MEDS: PANTOPRAZOLE 40 MG TABLET PO SCH ×2 (05:43→09:26)
[2021-09-27] MEDS: POTASSIUM CHLORIDE RIDER 10 MEQ/100 ML PREMIX IV PRN ×2 (05:46→06:59)
[2021-09-27] MEDS: SODIUM CHLORIDE 0.9% 1,000 ML IV SCH ×4 (08:01→23:46)
[2021-09-27] MEDS: INSULIN REGULAR 100 UNIT/ML SUBCUT SCH ×4 (08:02→20:25)
[2021-09-27] MEDS ORDERED: MAGNESIUM SULF RIDER 2 GM/50 ML PREMIX IV PRN (09:21)
[2021-09-27] MEDS ORDERED: MAGNESIUM SULF RIDER 4 GM/100 ML PREMIX IV PRN (09:21)
[2021-09-27] MEDS: ENOXAPARIN 40 MG/0.4 ML SYRINGE SUBCUT SCH (09:25)
[2021-09-27] MEDS: ASPIRIN CHEW 81 MG TABLET PO SCH (09:26)
[2021-09-27] MEDS: DOCUSATE SODIUM 100 MG CAPSULE PO SCH ×2 (09:26→20:23)
[2021-09-27] MEDS: cilostazoL 50 MG TABLET PO SCH ×2 (09:26→20:22)
[2021-09-27] MEDS: TICAGRELOR 90 MG TABLET PO SCH ×2 (09:26→20:23)
[2021-09-27] MEDS: MULTIVITAMIN (CENTRUM) TABLET PO SCH (09:26)
[2021-09-27] MEDS: LORATADINE 10 MG TABLET PO SCH (09:26)
[2021-09-27] MEDS: MAGNESIUM CHLORIDE 64 MG TABLET PO SCH (09:26)
[2021-09-27] MEDS: GABAPENTIN 100 MG CAPSULE PO SCH ×3 (09:26→20:23)
[2021-09-27] MEDS: allopurinoL 100 MG TABLET PO SCH (09:27)
[2021-09-27] MEDS: cefTRIAXone 2,000 MG in SODIUM CHLORIDE 0.9% 100 ML IV SCH (15:27)
[2021-09-28] MEDS: VANCOMYCIN 50 MG/ML 60 ML/BOTTLE PO SCH ×4 (04:14→21:40)
[2021-09-28 05:13] LABS: Basophils # 0.1 10*3/uL (0.0-0.2); Basophils % 0.8 % (0.0-0.8); Eosinophils # 0.4 10*3/uL (0.0-0.87); Eosinophils % 6.2 % (0.00-10.9); Hematocrit 30.2 VOL% (42.0-52.0); Hemoglobin 9.8 GM/DL (14.0-18.0); Immature Granulocytes % 2.2 %; Immature Granulocytes Absolute 0.14 #; Lymphocytes # 1.7 10*3/uL (1.4-4.0); Lymphocytes % 26.5 % (21.2-54.2); Mean Corpuscular HGB Conc 32.5 GM/DL (32-36); Mean Corpuscular Volume 89.3 FL (87-102); Mean Platelet Volume 9.2 FL (9.6-12.0); Monocytes % 10.6 % (1.7-12.7); Neutrophils % 53.7 % (38.7-73.9); Platelet Count 257 T/CUMM (130-400); Red Blood Count 3.38 MC/CUMM (3.8-5.5); Red Cell Distribution Width 15.3 % (9.3-17.3); White Blood Count 6.5 T/CUMM (4-12)
[2021-09-28 05:34] LABS: Albumin 2.3 G/DL (3.4-5.0); Bilirubin,Total 0.8 MG/DL (0.20-1.00); Osmolality,Calculated 277.4 MOS/KG (273-304); Potassium 3.6 MMOL/L (3.5-5.1); Total Protein 6.9 G/DL (6.4-8.2)
[2021-09-28] MEDS: PANTOPRAZOLE 40 MG TABLET PO SCH (05:46)
[2021-09-28] MEDS: GABAPENTIN 100 MG CAPSULE PO SCH ×3 (08:23→21:40)
[2021-09-28] MEDS: ENOXAPARIN 40 MG/0.4 ML SYRINGE SUBCUT SCH (08:24)
[2021-09-28] MEDS: LORATADINE 10 MG TABLET PO SCH (08:24)
[2021-09-28] MEDS: DOCUSATE SODIUM 100 MG CAPSULE PO SCH ×2 (08:24→21:40)
[2021-09-28] MEDS: cilostazoL 50 MG TABLET PO SCH ×2 (08:24→21:40)
[2021-09-28] MEDS: allopurinoL 100 MG TABLET PO SCH (08:24)
[2021-09-28] MEDS: MULTIVITAMIN (CENTRUM) TABLET PO SCH (08:24)
[2021-09-28] MEDS: MAGNESIUM CHLORIDE 64 MG TABLET PO SCH (08:24)
[2021-09-28] MEDS: TICAGRELOR 90 MG TABLET PO SCH ×2 (08:24→21:40)
[2021-09-28] MEDS: ASPIRIN CHEW 81 MG TABLET PO SCH (08:24)
[2021-09-28] MEDS: SODIUM CHLORIDE 0.9% 1,000 ML IV SCH ×3 (08:31→22:00)
[2021-09-28] MEDS: INSULIN REGULAR 100 UNIT/ML SUBCUT SCH ×4 (08:33→21:48)
[2021-09-28] MEDS ORDERED: MAGNESIUM SULF RIDER 4 GM/100 ML PREMIX IV ONE ×2 (10:00→13:48)
[2021-09-28] MEDS: cefTRIAXone 2,000 MG in SODIUM CHLORIDE 0.9% 100 ML IV SCH (14:45)
[2021-09-28] MEDS ORDERED: PHENOL 1.4% THROAT SPRAY 177 ML BOTTLE PO PRN (16:09)
[2021-09-28] MEDS ORDERED: SODIUM CHLORIDE 0.65% NASAL SPRAY 45 ML BOTTLE BOTH NARES PRN (16:09)
[2021-09-29] MEDS: VANCOMYCIN 50 MG/ML 60 ML/BOTTLE PO SCH ×2 (03:45→08:23)
[2021-09-29] MEDS: PANTOPRAZOLE 40 MG TABLET PO SCH (05:37)
[2021-09-29] MEDS: SODIUM CHLORIDE 0.9% 1,000 ML IV SCH ×2 (05:38→10:09)
[2021-09-29 06:00] LABS: Basophils % 0.5 % (0.0-0.8); Eosinophils # 0.4 10*3/uL (0.0-0.87); Eosinophils % 5.6 % (0.00-10.9); Hematocrit 29.8 VOL% (42.0-52.0); Hemoglobin 9.4 GM/DL (14.0-18.0); Immature Granulocytes % 2.2 %; Immature Granulocytes Absolute 0.16 #; Lymphocytes % 27.3 % (21.2-54.2); Mean Corpuscular HGB Conc 31.5 GM/DL (32-36); Mean Corpuscular Volume 91.1 FL (87-102); Mean Platelet Volume 9.3 FL (9.6-12.0); Monocytes % 8.6 % (1.7-12.7); NRBC # 0.02 10*3/uL; Neutrophils % 55.8 % (38.7-73.9); Platelet Count 319 T/CUMM (130-400); Red Blood Count 3.27 MC/CUMM (3.8-5.5); Red Cell Distribution Width 15.2 % (9.3-17.3); White Blood Count 7.4 T/CUMM (4-12)
[2021-09-29 06:18] LABS: Albumin 2.3 G/DL (3.4-5.0); Bilirubin,Total 1.1 MG/DL (0.20-1.00); Calcium 8.3 MG/DL (8.5-10.1); Osmolality,Calculated 274.5 MOS/KG (273-304); Potassium 3.4 MMOL/L (3.5-5.1)
[2021-09-29 06:28] LABS: Anisocytosis 1+; Macrocytosis Slight; Ovalocytes Few; Platelet Estimate Normal
[2021-09-29] MEDS: INSULIN REGULAR 100 UNIT/ML SUBCUT SCH ×2 (07:47→12:06)
[2021-09-29] MEDS: LORATADINE 10 MG TABLET PO SCH (08:22)
[2021-09-29] MEDS: DOCUSATE SODIUM 100 MG CAPSULE PO SCH (08:22)
[2021-09-29] MEDS: allopurinoL 100 MG TABLET PO SCH (08:22)
[2021-09-29] MEDS: MAGNESIUM CHLORIDE 64 MG TABLET PO SCH (08:22)
[2021-09-29] MEDS: TICAGRELOR 90 MG TABLET PO SCH (08:22)
[2021-09-29] MEDS: MULTIVITAMIN (CENTRUM) TABLET PO SCH (08:22)
[2021-09-29] MEDS: cilostazoL 50 MG TABLET PO SCH (08:22)
[2021-09-29] MEDS: ASPIRIN CHEW 81 MG TABLET PO SCH (08:23)
[2021-09-29] MEDS: GABAPENTIN 100 MG CAPSULE PO SCH (08:23)
[2021-09-29] MEDS: ENOXAPARIN 40 MG/0.4 ML SYRINGE SUBCUT SCH (08:23)
[2021-09-29] MEDS: cefTRIAXone 2,000 MG in SODIUM CHLORIDE 0.9% 100 ML IV SCH (08:23)
[2021-09-29] MEDS: ACETAMINOPHEN 325 MG TABLET PO PRN (08:34)
[2021-09-29] MEDS ORDERED: POTASSIUM CHLORIDE 20 MEQ TABLET PO ONE (09:00)
[2021-09-29 11:48] VITALS: BP 145/89
[2021-10-01] MEDS ORDERED: ERGOCALCIFEROL 50,000 UNIT CAPSULE PO SCH (09:00)
== END 2021-09-29 12:06 | disposition home or self-care (01) | DRG 720 ==
LOC: N.5E 22:35 → SUATTDRO 22:35
PROVIDERS: ADMIT Internal Medicine; ATTEND Internal Medicine